=== PATIENT | male | born 1975 | race Caucasian/White ===

== ENCOUNTER 2018-03-03 16:58 | Emergency (ER) | payer MEDICAID ==
[2018-03-03] MEDS: ONDANSETRON 4 MG INJ IV (17:07)
[2018-03-03] MEDS: morphine 4 MG/ML VIAL IV (17:07)
[2018-03-03] MEDS: SOD CHLORIDE 0.9% 1,000 ML IV ×2 (17:19→21:27)
[2018-03-03 17:22] LABS: ADD MAN DIFF? NO
[2018-03-03 17:30] LABS: BASOPHIL # 0.1 10^3/ul (0.0-0.1); BASOPHILS % 0.4 % (0.0-2.0); EOSINOPHILS # 0.4 10^3/ul (0.0-0.5); HEMATOCRIT 39.8 % (42.0-52.0); HEMOGLOBIN 13.6 g/dl (14.0-18.0); LYMPHOCYTES # 3.5 10^3/ul (0.8-2.9); LYMPHOCYTES % 23.9 % (15.0-51.0); MEAN CORPUSCULAR HEMOGLOBIN 29.6 pg (29.0-33.0); MEAN CORPUSCULAR HGB CONC 34.2 g/dl (32.0-37.0); MEAN CORPUSCULAR VOLUME 86.5 fl (82.0-101.0); MEAN PLATELET VOLUME 10.4 fl (7.4-10.4); MONOCYTE # 1.2 10^3/ul (0.3-0.9); MONOCYTES % 7.9 % (0.0-11.0); NEUTROPHIL # 9.3 10^3/ul (1.6-7.5); NEUTROPHILS % 64.2 % (39.0-77.0); PLATELET COUNT 273 10^3/UL (140-415); RED CELL DISTRIBUTION WIDTH 12.4 % (11.5-14.5)
[2018-03-03 17:30] LABS: WHITE BLOOD COUNT 14.5 10^3/ul (4.8-10.8)
[2018-03-03 17:50] LABS: INR 0.94; PROTIME 12.7 Sec (11.9-14.9)
[2018-03-03 17:51] LABS: ALANINE AMINOTRANSFERASE 190 IU/L (13-69); ALBUMIN/GLOBULIN RATIO 1.25; ALKALINE PHOSPHATASE 50 IU/L (42-121); ANION GAP 21 (8-16); ASPARTATE AMINO TRANSFERASE 98 IU/L (15-46); BILIRUBIN,INDIRECT 0.8 mg/dl (0-1.1); BILIRUBIN,TOTAL 0.8 mg/dl (0.2-1.3); BLOOD UREA NITROGEN 15 mg/dl (7-20); CALCIUM 8.7 mg/dl (8.4-10.2); CARBON DIOXIDE 22 mmol/L (21-31); CHLORIDE 97 mmol/L (97-110); CREATININE 1.66 mg/dl (0.61-1.24); GLUCOSE 198 mg/dl (70-220); LIPASE 203 U/L (23-300); PARTIAL THROMBOPLASTIN TIME 23.3 Sec (25.0-35.0); SODIUM 138 mmol/L (135-144); TOTAL PROTEIN 7.2 g/dl (6.1-8.1)
[2018-03-03] MEDS: POTASSIUM CHLORIDE (SR) 20 MEQ TAB PO (18:00)
[2018-03-03 18:03] LABS: TROPONIN-I < 0.010 ng/ml (0.000-0.120)
[2018-03-03 18:07] LABS: ACETAMINOPHEN < 10.0 ug/ml (10.0-30.0); POTASSIUM 2.4 mmol/L (3.5-5.1); SALICYLATE < 1.0 mg/dl (5.0-30.0)
[2018-03-03 18:32] LABS: ETHANOL < 10.0 mg/dl
[2018-03-03] MEDS: IOHEXOL 100 ML (18:39)
[2018-03-03] MEDS: SOD CHLORIDE 0.9% 100 ML (18:39)
[2018-03-03 19:50] LABS: TROPONIN-I < 0.010 ng/ml (0.000-0.120)
[2018-03-03] MEDS: HYDROmorphONE 2 MG/ML SYG IV (19:54)
[2018-03-03] MEDS: POTASSIUM CHLORIDE 100 ML IVPB ×2 (19:54→21:27)
[2018-03-03 20:24] LABS: ADD MAN DIFF? NO
[2018-03-03 20:35] LABS: BASOPHILS % 0.2 % (0.0-2.0); EOSINOPHILS % 0.2 % (0.0-7.0); HEMATOCRIT 31.5 % (42.0-52.0); HEMOGLOBIN 10.8 g/dl (14.0-18.0); LYMPHOCYTES # 1.1 10^3/ul (0.8-2.9); LYMPHOCYTES % 5.8 % (15.0-51.0); MEAN CORPUSCULAR HEMOGLOBIN 29.8 pg (29.0-33.0); MEAN CORPUSCULAR HGB CONC 34.3 g/dl (32.0-37.0); MEAN PLATELET VOLUME 10.7 fl (7.4-10.4); MONOCYTES % 4.9 % (0.0-11.0); NEUTROPHIL # 17.1 10^3/ul (1.6-7.5); NEUTROPHILS % 88.2 % (39.0-77.0); PLATELET COUNT 178 10^3/UL (140-415); RED BLOOD COUNT 3.62 10^6/ul (4.70-6.10); RED CELL DISTRIBUTION WIDTH 12.4 % (11.5-14.5)
[2018-03-03 20:35] LABS: WHITE BLOOD COUNT 19.3 10^3/ul (4.8-10.8)
[2018-03-03 21:01] LABS: ADD UMIC YES; UR ASCORBIC ACID NEGATIVE (NEGATIVE); UR BILIRUBIN (Dip) NEGATIVE (NEGATIVE); UR BLOOD (Dip) NEGATIVE (NEGATIVE); UR CLARITY CLEAR (CLEAR); UR COLOR YELLOW (YELLOW); UR GLUCOSE (Dip) NEGATIVE (NEGATIVE); UR KETONES (Dip) NEGATIVE (NEGATIVE); UR LEUKOCYTE ESTERASE (Dip) NEGATIVE Leu/ul (NEGATIVE); UR NITRITE (Dip) NEGATIVE (NEGATIVE); UR RBC 1 /HPF (0-5); UR SPECIFIC GRAVITY (Dip) 1.032 (1.003-1.030); UR TOTAL PROTEIN (Dip) 1+ mg/dl (NEGATIVE); UR UROBILINOGEN (Dip) NEGATIVE (NEGATIVE); UR WBC 2 /HPF (0-5)
[2018-03-03 21:33] LABS: AMPHETAMINE/METHAMPHETAMINE Negative (NEGATIVE); BARBITURATES Negative (NEGATIVE); BENZODIAZEPINES Negative (NEGATIVE); CANNABINOIDS Negative (NEGATIVE); COCAINE Negative (NEGATIVE); OPIATES Positive (NEGATIVE)
[2018-03-03 21:44] LABS: IMMEDIATE SPIN CROSSMATCH 1 4
[2018-03-03] MEDS: SOD CHLORIDE 0.9% 250 ML IV (21:50)
== END 2018-03-03 23:23 | disposition short-term general hospital (02) ==
LOC: E/R 16:58
PROVIDERS: Pediatrics
DX: K66.1 Hemoperitoneum (principal); I71.02 Dissection of abdominal aorta; D64.9 Anemia, unspecified; E87.6 Hypokalemia; I25.10 Atherosclerotic heart disease of native coronary artery without angina pectoris; I10 Essential (primary) hypertension; R40.2142 Coma scale, eyes open, spontaneous, at arrival to emergency department; R40.2362 Coma scale, best motor response, obeys commands, at arrival to emergency department; R40.2252 Coma scale, best verbal response, oriented, at arrival to emergency department; Z79.82 Long term (current) use of aspirin
CPT/HCPCS: 36415; 36430; 70450; 71045; 71275; 72125; 75635; 80053; 80307; 81001; 83690; 84484; 85025; 85610; 85730; 86850; 86900; 86901; 86920; 93005; 96374; 96375; 99291-25

== ENCOUNTER 2018-03-17 06:29 | Emergency (ER) | payer MEDICAID ==
[2018-03-17 07:05] LABS: ADD MAN DIFF? NO
[2018-03-17] MEDS: ONDANSETRON 4 MG INJ IV (07:07)
[2018-03-17] MEDS: HYDROmorphONE 1 MG/ML SYG IV (07:07)
[2018-03-17] MEDS: SOD CHLORIDE 0.9% 1,000 ML IV ×2 (07:07→09:30)
[2018-03-17 07:10] LABS: WHITE BLOOD COUNT 18.2 10^3/ul (4.8-10.8)
[2018-03-17 07:10] LABS: BASOPHIL # 0.1 10^3/ul (0.0-0.1); BASOPHILS % 0.4 % (0.0-2.0); EOSINOPHILS # 0.4 10^3/ul (0.0-0.5); EOSINOPHILS % 2.4 % (0.0-7.0); HEMATOCRIT 31.9 % (42.0-52.0); HEMOGLOBIN 10.9 g/dl (14.0-18.0); LYMPHOCYTES # 1.4 10^3/ul (0.8-2.9); LYMPHOCYTES % 7.5 % (15.0-51.0); MEAN CORPUSCULAR HEMOGLOBIN 30.2 pg (29.0-33.0); MEAN CORPUSCULAR HGB CONC 34.2 g/dl (32.0-37.0); MEAN CORPUSCULAR VOLUME 88.4 fl (82.0-101.0); MEAN PLATELET VOLUME 9.5 fl (7.4-10.4); MONOCYTE # 1.5 10^3/ul (0.3-0.9); NEUTROPHIL # 14.4 10^3/ul (1.6-7.5); NEUTROPHILS % 79.2 % (39.0-77.0); PLATELET COUNT 601 10^3/UL (140-415); RED BLOOD COUNT 3.61 10^6/ul (4.70-6.10); RED CELL DISTRIBUTION WIDTH 13.8 % (11.5-14.5)
[2018-03-17 07:28] LABS: INR 1.01; PARTIAL THROMBOPLASTIN TIME 33.1 Sec (25.0-35.0); PROTIME 13.4 Sec (11.9-14.9)
[2018-03-17 07:32] LABS: ALANINE AMINOTRANSFERASE 179 IU/L (13-69); ALBUMIN 4.1 g/dl (3.3-4.9); ALBUMIN/GLOBULIN RATIO 0.82; ALKALINE PHOSPHATASE 213 IU/L (42-121); ANION GAP 16 (8-16); ASPARTATE AMINO TRANSFERASE 128 IU/L (15-46); BILIRUBIN,INDIRECT 1.6 mg/dl (0-1.1); BILIRUBIN,TOTAL 1.6 mg/dl (0.2-1.3); BLOOD UREA NITROGEN 17 mg/dl (7-20); CALCIUM 9.3 mg/dl (8.4-10.2); CARBON DIOXIDE 31 mmol/L (21-31); CHLORIDE 89 mmol/L (97-110); CREATININE 0.98 mg/dl (0.61-1.24); GLUCOSE 114 mg/dl (70-220); LIPASE 1293 U/L (23-300); POTASSIUM 3.7 mmol/L (3.5-5.1); SODIUM 132 mmol/L (135-144); TOTAL PROTEIN 9.1 g/dl (6.1-8.1)
[2018-03-17 07:38] LABS: TROPONIN-I 0.018 ng/ml (0.000-0.120)
[2018-03-17] MEDS: IOHEXOL 300MG/ML 150 ML BTL (09:05)
[2018-03-17] MEDS: SOD CHLORIDE 0.9% 200 ML (09:05)
[2018-03-17] MEDS: CEFTRIAXONE 1 GM/50 ML (PMX) 50 ML IVPB (09:18)
[2018-03-17] MEDS: niCARdipine-NS 0.1MG/ML DRIP 200 ML IV (09:27)
[2018-03-17] MEDS: morphine 4 MG/ML VIAL IV (11:01)
[2018-03-17] MEDS: HYDROmorphONE 2 MG/ML SYG IV ×2 (14:46→18:01)
== END 2018-03-17 19:30 | disposition short-term general hospital (02) ==
LOC: E/R 19:30
DX: I97.638 Postprocedural hematoma of a circulatory system organ or structure following other circulatory system procedure (principal); I71.01 Dissection of thoracic aorta; D72.820 Lymphocytosis (symptomatic); K85.90 Acute pancreatitis without necrosis or infection, unspecified; R74.0 Nonspecific elevation of levels of transaminase and lactic acid dehydrogenase [LDH]; I16.1 Hypertensive emergency; T82.330A Leakage of aortic (bifurcation) graft (replacement), initial encounter; R40.2142 Coma scale, eyes open, spontaneous, at arrival to emergency department; R40.2252 Coma scale, best verbal response, oriented, at arrival to emergency department; R40.2362 Coma scale, best motor response, obeys commands, at arrival to emergency department; I10 Essential (primary) hypertension; I25.10 Atherosclerotic heart disease of native coronary artery without angina pectoris; Y71.3 Surgical instruments, materials and cardiovascular devices (including sutures) associated with adverse incidents; Z87.891 Personal history of nicotine dependence; Z79.82 Long term (current) use of aspirin
CPT/HCPCS: 36415; 71275; 74177; 76705; 80053; 83690; 84484; 85025; 85610; 85730; 93005; 96374; 96375; 96376; 99291-25

== ENCOUNTER 2018-10-13 19:02 | Emergency (ER) | payer SELFPAY, MEDICAID | END 2018-10-14 02:38 | disposition left against medical advice (07) | LOC: E/R 19:02 | DX: Z53.21 Procedure and treatment not carried out due to patient leaving prior to being seen by health care provider (principal) | CPT/HCPCS: 99281 ==